=== PATIENT | female | born 1980 | race Two or more races ===

== ENCOUNTER 2017-04-11 09:03 | Inpatient (IN) | payer OTHER ==
[~2017-04-11] VITALS: Ht 160 cm; Wt 2.7 kg
[2017-04-11] MEDS ORDERED: PRENATABS FA T1 EACH PO (09:56)
[2017-04-11] MEDS ORDERED: FOLIC ACID1 MG PO (09:56)
== END 2017-04-16 14:06 | disposition home or self-care (01) | DRG 766 ==
LOC: LDR 04-13 07:00 → O/R 04-13 07:30 → OB/GYN 04-13 07:30 → LDR 04-13 09:02 → OB/GYN 04-13 15:19
PROVIDERS: Obstetrics & Gynecology
PROC: 4A1HXCZ Monitoring of Products of Conception, Cardiac Rate, External Approach (ICD-10-PCS; 2017-04-13)
PROC: 4A033R1 Measurement of Arterial Saturation, Peripheral, Percutaneous Approach (ICD-10-PCS; 2017-04-13)
PROC: 10D00Z1 Extraction of Products of Conception, Low, Open Approach (ICD-10-PCS; principal; 2017-04-13 07:00)
DX: O34.211 Maternal care for low transverse scar from previous cesarean delivery (principal); Z3A.39 39 weeks gestation of pregnancy; Z37.0 Single live birth

== ENCOUNTER 2019-08-24 16:39 | Emergency (ER) | payer OTHER ==
[~2019-08-24] VITALS: Ht 160 cm; Wt 45.4 kg
[~2019-08-24 16:39] MED LIST: FOLIC ACID1 MG PO; PRENATABS FA T1 EACH PO
== END 2019-08-24 19:34 | disposition home or self-care (01) ==
LOC: ER 16:39
DX: R50.9 Fever, unspecified (principal); N39.0 Urinary tract infection, site not specified

== ENCOUNTER 2020-11-30 10:48 | Emergency (ER) | payer OTHER ==
[~2020-11-30] VITALS: Ht 157.5 cm; Wt 58.1 kg
[2020-11-30] MEDS ORDERED: ORPHENADRINE C100 MG PO (15:17)
[2020-11-30] MEDS ORDERED: DICLOFENAC POTA50 MG PO (15:17)
== END 2020-11-30 16:14 ==
LOC: ER 10:48
DX: M62.838 Other muscle spasm (principal); E06.3 Autoimmune thyroiditis